=== PATIENT | female | born 1990 | race Caucasian/White ===

== ENCOUNTER 2017-08-30 10:05 | Day surgery (SDC) | payer OTHER ==
[~2017-08-30] VITALS: Ht 170.2 cm; Wt 65.8 kg
[~2017-08-30 10:05] MED LIST: PRENATAL-FOLIC1 EACH PO
[2017-08-30] MEDS ORDERED: CLEOCIN HCL300 MG PO (10:21)
--- NOTE | 2017-08-30 12:29 | NUR ---
08/30/17 1229 Brit Rob 1210 PT ARRIVED IN PACU SLEEPY WITH ORAL AIRWAY IN PLACE.
--- NOTE | 2017-08-30 13:05 | NUR ---
APPLESAUCE AND ICED WATER GIVEN. SPOUSE @ BS. CALL LIGHT W/IN REACH. HARD COPY PRESCRIPTION GIVEN TO PT'S SPOUSE.
[2017-08-30] MEDS ORDERED: HYDROCODONE-AC473 ML PO (13:10)
--- NOTE | 2017-08-30 14:00 | NUR ---
PT REQ DC HOME. PT UP TO BR W/RN STANDBY. PT AMBULATES WELL AND DENIES DIZZINESS. DC INSTRUCTIONS GIVEN IN PRESENCE OF SPOUSE AND BOTH HE AND PT VERBALIZE UNDERSTANDING.
--- NOTE | 2017-08-30 14:39 | NUR ---
LE 1410: PT DRESSES SELF IN PRESENCE OF SPOUSE AND TRANSFERS HERSELF TO AND THEN PERSONAL VEHICLE AND DOES THAT WELL.
--- NOTE | 2017-09-06 14:15 | PREHP ---
[facility] [address] [place], [place] [address] Signed ADMISSION DATE: 08/30/2017 She is scheduled for surgery August 30 at [facility]. CHIEF COMPLAINT: Chronic tonsillitis. HISTORY OF PRESENT ILLNESS: Louise is a 26-year-old lady, who has had multiple episodes of strep tonsillitis over the past several years at least three over the past year. She has had a peritonsillar abscess about three years ago, drained by in 2013. She has another severe episode of tonsillitis. Her primary, Tamiko Carbone was worried about peritonsillar abscess and has referred her here for evaluation. She started her on clindamycin yesterday after talking to me. The patient is feeling much better today. PAST HISTORY/REVIEW OF SYSTEMS: Otherwise healthy. ALLERGIES: No allergies to medications. CURRENT MEDICATIONS: Clindamycin and control pills. PAST SURGICAL HISTORY: None. SOCIAL HISTORY: She is , lives in [place]. 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 Occasional alcohol. No tobacco. FAMILY HISTORY: Unremarkable. PHYSICAL EXAMINATION: VITAL SIGNS: Stable. Afebrile. GENERAL: This is a well-developed, well-developed, well-nourished female, in no distress. HEAD AND NECK: Unremarkable except for the tonsils. Right tonsil is 2+, inflamed. A bit of tenseness to the peritonsillar area, possibly with some fluctuance. No significant airway obstruction. Left tonsil is 1+ acutely, edematous appearing. Head and neck exam otherwise unremarkable. CHEST: Clear. Electronically Signed By: BRADFORD WRIGHT MD 09/06/17 1415 PATIENT NAME: LOUISE MOURA PREOPERATIVE H&P DATE OF : 86 REPORT #: [id number] PHYSICIAN: BRADFORD WRIGHT MD PCP: TAMIKO CARBONE PA-C REPORT IS CONFIDENTIAL AND NOT TO BE RELEASED WITHOUT AUTHORIZATION [facility] [address] [place], [place] [address] Signed HEART: Regular rate and rhythm. ABDOMEN: Benign. EXTREMITIES: Benign. NEUROLOGIC: Grossly intact. REVIEW OF RECORDS: I have an office note from Tamiko Carbone, 08/25/2017, which I have reviewed. IMPRESSION: 1. Chronic tonsillitis. 2. History of peritonsillar abscess, right side and it appears, she has possibly a small right peritonsillar abscess today, possible tonsillar cellulitis. RECOMMENDATION: Continue the antibiotics. Encourage fluids. I have given her prescription for hydrocodone elixir 200 mL. We will schedule her for tonsillectomy at [facility], Wednesday, August 30, 2017 outpatient general anesthetic. The risks of surgery including bleeding, infection, continued sore throats have all been explained and accepted by Louise. She understands and desires to proceed. Bradford Wright MD GC/MODL /[id number] cc: MD Tamiko Tapia PA-C Copies: BRADFORD WRIGHT MD, CHLOE K PA-C ~ Electronically Signed By: BRADFORD WRIGHT MD 09/06/17 1415 PATIENT NAME: LOUISE MOURA PREOPERATIVE H&P DATE OF : 86 REPORT #: [id number] PHYSICIAN: BRADFORD WRIGHT MD PCP: TAMIKO CARBONE PA-C REPORT IS CONFIDENTIAL AND NOT TO BE RELEASED WITHOUT AUTHORIZATION
--- NOTE | 2017-09-06 14:15 | OR ---
[facility] [address] [place], [place] [address] Signed DATE OF OPERATION: 08/30/2017 SURGEON: Bradford Wright MD PREOPERATIVE DIAGNOSIS: Chronic tonsillitis with recurrent right peritonsillar abscess. POSTOPERATIVE DIAGNOSIS: Chronic tonsillitis with recurrent right peritonsillar abscess. PROCEDURE: Tonsillectomy. ANESTHESIA: General LMA; Edwin THOMAS. PREOPERATIVE HISTORY: Louise is a 26-year-old lady, who has had history of a right peritonsillar abscess 4 years ago, incised and drained by Dr. Reina in [place]. She has had a recurrent abscess with lots of tonsil infections in the interim, taken to the operating room at this time for above-mentioned procedure. PROCEDURE AND FINDINGS: After informed consent, the patient was taken to the operating room and placed in the supine position, where general orotracheal anesthesia was induced. The patient and procedure were verified. The patient was repositioned. McIvor mouth gag placed into suspension. Headlight exam of the pharynx showed hypertrophic tonsil on the left and a larger tonsil on the right with peritonsillar edema and induration. The left tonsil was grasped with a tenaculum. Tenaculum retracted medially and removed from its fossa with mucosal sparing incision with Coblation. Field was dry after the procedure. Same procedure on the right tonsil. In the posterior lateral superior aspect of the tonsil, there was an abscess cavity filled with seromucous fluid. This was all opened and drained completely during the tonsillectomy. Tonsils were sent to pathology for permanent sections. Hemostasis was verified on each tonsil. Minimal bleeding. The pharynx was suctioned clear of blood and secretions. The mouth gag was removed. The patient was awakened, extubated, and transported to the recovery room in good condition. COMPLICATIONS: No complications. Electronically Signed By: BRADFORD WRIGHT MD 09/06/17 1415 PATIENT NAME: LOUISE MOURA OPERATIVE REPORT DATE OF : 86 REPORT #: [id number] PHYSICIAN: BRADFORD WRIGHT MD PCP: MILTON ROBERSON PA-C REPORT IS CONFIDENTIAL AND NOT TO BE RELEASED WITHOUT AUTHORIZATION [address] [place], [place] [address] Signed BLOOD LOSS: Minimal. SPECIMEN: To pathology. DRAINS: No drains. Bradford Wright MD GC/MODL /[id number] Copies: ~ Electronically Signed By: BRADFORD WRIGHT MD 09/06/17 1415 PATIENT NAME: LOUISE MOURA OPERATIVE REPORT DATE OF : [birth year] REPORT #: [id number] PHYSICIAN: BRADFORD WRIGHT MD PCP: MILTON ROBERSON PA-C REPORT IS CONFIDENTIAL AND NOT TO BE RELEASED WITHOUT AUTHORIZATION
== END 2017-08-30 14:15 | disposition home or self-care (01) ==
LOC: DS 10:05
PROVIDERS: Otolaryngology
PROC: 0C5PXZZ Destruction of Tonsils, External Approach (ICD-10-PCS; principal; 2017-08-30 11:15)
DX: J35.01 Chronic tonsillitis (principal); Z79.2 Long term (current) use of antibiotics
CPT/HCPCS: J0330; J1100; J1885; J2250; J2405; J2704; J2765; J3010; J7120

== ENCOUNTER 2017-09-07 01:16 | Emergency (ER) | payer OTHER ==
[~2017-09-07] VITALS: Ht 170.2 cm; Wt 65.8 kg
[~2017-09-07 01:16] MED LIST changes: +CLEOCIN HCL300 MG PO; +HYDROCODONE-AC473 ML PO
== END 2017-09-07 01:53 | disposition short-term general hospital (02) ==
LOC: ED 01:16
DX: J95.830 Postprocedural hemorrhage of a respiratory system organ or structure following a respiratory system procedure (principal); Z88.0 Allergy status to penicillin; Z88.1 Allergy status to other antibiotic agents; Z79.2 Long term (current) use of antibiotics; Z90.89 Acquired absence of other organs
CPT/HCPCS: 80053; 85025; 85610; 85730; 96374; 99285; J2405

== ENCOUNTER 2018-10-09 11:51 | Emergency (ER) | payer OTHER ==
[~2018-10-09] VITALS: Ht 170.2 cm; Wt 65.8 kg
--- OUTSIDE RECORDS SUMMARY | ~2018-10-09 | XMS | Clinical Summary ---
Demographics + + + | Address | [address] | | | [place] [address] | + + + | Home Phone | | + + + | Preferred Language | Unknown | + + + | Marital Status | | + + + | Hinduism Affiliation | Unknown | + + + | Race | Unknown | + + + | Ethnic Group | Unknown | + + + Author + + + | Author | [facility] | | | and [place] | + + + | Organization | [facility] | | | and [place] | + + + | Address | Unknown | + + + | Phone | Unavailable | + + + Support + + + + + | Name | Relationship | Address | Phone | + + + + + | Diogo Heck | ECON | [address] | | | | | [place] | | | | | [address] | | + + + + + Care Team Providers + +------+ + | Care Roustabout Supervisor Name | Role | Phone | + +------+ + | Stan Wood DO | PP | | + +------+ + Allergies + + + + + + | Active Allergy | Reactions | Severity | Noted | Comments | | | | | Date | | + + + + + + | Amoxicillin | Hives | | 09/08/19 | | | | | | 18 | | + + + + + + | Penicillins | Hives | | 09/08/19 | | | | | | 18 | | + + + + + + Medications + + + +---------+------+------+-------+ | Medication | Sig | Dispensed | Refills | Star | End | Statu | | | | | | t | Date | s | | | | | | Date | | | + + + +---------+------+------+-------+ | | Take 10-15 mLs by | | 0 | | | Activ | | HYDROcodone-acetamin | mouth every 4 hours | | | | | e | | ophen 5-217 mg/10 mL | as needed for Pain. | | | | | | | liquid | | | | | | | + + + +---------+------+------+-------+ | ibuprofen | Take 800 mg by mouth | | 0 | | | Activ | | (ADVIL,MOTRIN) 800 | every 6 hours as | | | | | e | | MG tablet | needed for Pain. | | | | | | + + + +---------+------+------+-------+ | | Take 15 mLs by mouth | 300 mL | 0 | 03/1 | | Activ | | HYDROcodone-acetamin | every 4 hours as | | | 7/20 | | e | | ophen (HYCET) | needed for Pain. | | | 18 | | | | 7.5-325 mg/15 mL | | | | | | | | liquid | | | | | | | + + + +---------+------+------+-------+ Active Problems Not on file Social History + +-------+ +--------+------+ | Tobacco Use | Types | Packs/Day | Years | Date | | | | | Used | | + +-------+ +--------+------+ | Never Smoker | | | | | + +-------+ +--------+------+ + +---+---+---+ | Smokeless Tobacco: | | | | | Never Used | | | | + +---+---+---+ + + +---------+ + | Alcohol Use | Drinks/We | oz/Week | Comments | | | ek | | | + + +---------+ + | Yes | | | occasional | + + +---------+ + + + + | Sex Assigned at | Date Recorded | | | | + + + | Not on file | | + + + + + + + | Job Start Date | Occupation | Industry | + + + + | Not on file | Not on file | Not on file | + + + + + + + + | Travel History | Travel Start | Travel End | + + + + + + | No recent travel history available. | + + Last Filed Vital Signs + + + + | Vital Sign | Reading | Time Taken | + + + + | Blood Pressure | 101/67 | 09/10/2017939 PDT | + + + + | Pulse | 70 | 09/10/2017939 PDT | + + + + | Temperature | 36.9 C (98.4 F) | 09/10/2017639 PDT | + + + + | Respiratory Rate | 16 | 09/10/2017939 PDT | + + + + | Oxygen Saturation | 96% | 09/10/2017939 PDT | + + + + | Inhaled Oxygen | - | - | | Concentration | | | + + + + | Weight | 65.8 kg (145 lb) | 09/10/2017205 PDT | + + + + | Height | 170.2 cm (5' 7") | 09/08/20172322 PDT | + + + + | Body Mass Index | 22.71 | 09/08/2017 2323 PDT | + + + + Plan of Treatment + + + + + | Health Maintenance | Due Date | Last Done | Comments | + + + + + | Vaccine: | | | | | Dtap/Tdap/Td (1 - | 8 | | | | Tdap) | | | | + + + + + | Cervical Cancer | | | | | Screening (Pap) | 9 | | | + + + + + | Vaccine: Influenza | | | | | (Season Ended) | 9 | | | + + + + + Results Not on filefrom Last 3 Months Insurance + +--------+ +--------+ +---------+------+ | Payer | Benefi | Subscriber | Effect | Phone | Address | Type | | | t Plan | ID | tameka | | | | | | / | | Dates | | | | | | Group | | | | | | + +--------+ +--------+ +---------+------+ | [employer] | PHP | [id number] | 07/28/19 | [phone] | | PPO | | PLAN | PEBB | | 18-Pre | 5 | | | | | STATEW | | sent | | | | | | ANNALISE | | | | | | + +--------+ +--------+ +---------+------+ + +--------+ +--------+ + + | Guarantor Name | Accoun | Relation to | Date | Phone | Billing Address | | | t Type | Patient | of | | | | | | | | | | + +--------+ +--------+ + + | oLuise Heck | Person | Self [birth year] | [address] | | [place] | al/Fam | | 1991 | [phone] | [place] [address] | | | [place] | | | [address] (Home) | | + +--------+ +--------+ + + Advance Directives Patient has advance care planning documents, and code status on file. For more information, please contact:[facility] [place] [address] + + + + + | Code Status | Date | Date | Comments | | | Activated | Inactivated | | + + + + + | Full Code | 09/10/2017 | 09/10/2017 | | | | 6:06 | 13:45 | | + + + + +
--- OUTSIDE RECORDS SUMMARY | ~2018-10-09 | XMS | Clinical Summary ---
Demographics + + + | Address | [address] | | | [place] [address] | + + + | Home Phone | | + + + | Preferred Language | Unknown | + + + | Marital Status | | + + + | Druze Affiliation | Unknown | + + + | Race | Unknown | + + + | Ethnic Group | Unknown | + + + Author + + + | Author | [facility] | | | and [place] | + + + | Organization | [facility] | | | and [place] | [...] [place] | | | | | [address] | | + + + + + Care Team Providers + +------+ + | Care Curing Pickling Packer Name | Role | Phone | + [...] +--------+ +---------+------+ | [employer] | PHP | [phone] | 07/28/19 | [phone] | | PPO | | PLAN | [...] | + +--------+ +--------+ + + | Louise Heck | Person | Self [birth year] | [address] | | [place] | al/Fam | | 1991 | [phone] | [place] [address] | | | [place] | | | [address] (Home) | | + +--------+ +--------+ + + Advance Directives Patient has advance care planning documents, and code status on file. For more information, please contact:[facility] [place] [address] + + + + + | Code Status | Date | Date | Comments | | | Activated | Inactivated | | + + + + + | Full Code | 09/10/2017 | 09/10/2017 | | | | 6:06 | 13:45 | | + + + + +
[2018-10-09] MEDS ORDERED: [UNRECOGNIZED DRUG - OTHER] (12:03)
--- NOTE | 2018-10-10 16:54 | EKG ---
[facility] [address] [facility] [place], [place] [address] Signed Normal sinus rhythm Normal ECG No previous ECGs available Confirmed by JUDY MONACO DO ([id number]) on 10/10/2018 4:54:36 PM Electronically Signed By: JUDY MONACO DO 10/10/18 1654 PATIENT NAME: NASIM MOURA Electrocardiogram DATE OF : 86 PHYSICIAN: UJDY MONACO DO REPORT #: [id number] REPORT IS CONFIDENTIAL AND NOT TO BE RELEASED WITHOUT AUTHORIZATION
== END 2018-10-09 14:36 | disposition home or self-care (01) ==
LOC: ED 11:51
DX: M54.12 Radiculopathy, cervical region (principal); Z88.0 Allergy status to penicillin; Z79.899 Other long term (current) drug therapy
CPT/HCPCS: 80053; 81001; 83735; 84443; 84703; 85025; 93005; 93010; 96360; 99284-25; J7030

== ENCOUNTER 2021-11-03 09:59 | Inpatient (IN) | payer OTHER ==
[~2021-11-03] VITALS: Ht 167.6 cm; Wt 80.7 kg
[~2021-11-03 09:59] MED LIST changes: +[UNRECOGNIZED DRUG - OTHER]
--- NOTE | 2021-11-03 10:25 | NUR ---
Obtaine COVID swab. PT tolerated well.
--- NOTE | 2021-11-03 12:12 | PR ---
[facility] [address] [facility] [place], [place] [address] Signed Progress Notes IP Datetime Report Generated by CPN: 11/03/2021 12:12 PROGRESS NOTES: [id number] Impression: Normal Progression of Labor Plan: Continue Present Management; Anticipate Vaginal Delivery VITAL SIGNS: [id number] Vital Signs: Reviewed; Within Normal Limits EXAM: [id number] Dilatation: 4.0 Effacement: 75 Station: -2 Contractions: irregular MEMBRANES: [id number] Membranes Status: Ruptured Comments: Tolerating contractions well, will continue monitoring. May need Pitocin augmentation FETUS A: [id number] FHR Baseline: 135 Variability: Moderate 6-25bpm Accelerations: 15X15 FETUS B: [id number] Signing Physician: Apolonia Caraballo MD Copies: ~ *Electronically Signed* 11/03/21 1212 APOLONIA CARABALLO MD PATIENT NAME: NASIM MOURA PROGRESS NOTE DATE OF : 86 PHYSICIAN: APOLONIA CARABALLO MD RPT #: [id number] REPORT IS CONFIDENTIAL AND NOT TO BE RELEASED WITHOUT AUTHORIZATION
--- NOTE | 2021-11-03 14:10 | PR ---
[facility] [address] [facility] [place], [place] [address] Signed Progress Notes IP Datetime Report Generated by CPN: 11/03/2021 14:10 PROGRESS NOTES: [id number] Impression: Normal Progression of Labor Plan: Continue Present Management; Anticipate Vaginal Delivery VITAL SIGNS: [id number] Vital Signs: Reviewed; Within Normal Limits EXAM: [id number] Dilatation: 5.0 Effacement: 75 Station: -2 Contractions: irregular MEMBRANES: [id number] Membranes Status: Ruptured Comments: Patient getting more uncomfortable, feeling like contracitons closer together, would like Epidural. -> Anesthesia notified. Still no fluid seen since AROM, but no membranes palpable either; will continue monitoring. FETUS A: [id number] FHR Baseline: 135 Variability: Moderate 6-25bpm Accelerations: 15X15 FETUS B: [id number] Signing Physician: Estrada Caraballo MD Copies: ~ *Electronically Signed* 11/03/21 1410 ESTRADA CARABALLO MD PATIENT NAME: NASIM MOURA VIRGEN PROGRESS NOTE DATE OF : 86 PHYSICIAN: ESTRADA CARABALLO MD RPT #: [id number] REPORT IS CONFIDENTIAL AND NOT TO BE RELEASED WITHOUT AUTHORIZATION
--- NOTE | 2021-11-03 15:30 | PR ---
[facility] [address] [facility] [place], [place] [address] Signed Progress Notes IP Datetime Report Generated by CPN: 11/03/2021 15:30 PROGRESS NOTES: [id number] Impression: Normal Progression of Labor Other Impressions: Slow Progress Procedures: Intrauterine Pressure Catheter; Scalp Electrode Plan: Augmentation; Anticipate Vaginal Delivery VITAL SIGNS: [id number] Vital Signs: Reviewed; Within Normal Limits EXAM: [id number] Dilatation: 5.0 Effacement: 75 Station: -2 Contractions: irregular MEMBRANES: [id number] Membranes Status: Ruptured Comments: Minimal cervical change, now comfortable with Epidural. Will start Pitocin augmentation. FETUS A: [id number] FHR Baseline: 135 Variability: Moderate 6-25bpm Accelerations: 15X15 FETUS B: [id number] Signing Physician: Apolonia Caraballo MD Copies: ~ *Electronically Signed* 11/03/21 2906 APOLONIA CARABALLO MD PATIENT NAME: NASIM MOURA PROGRESS NOTE DATE OF : 86 PHYSICIAN: APOLONIA CARABALLO MD RPT #: [id number] REPORT IS CONFIDENTIAL AND NOT TO BE RELEASED WITHOUT AUTHORIZATION
--- NOTE | 2021-11-03 18:21 | PR ---
[facility] [address] [facility] [place], [place] [address] Signed Progress Notes IP Datetime Report Generated by CPN: 11/03/2021 18:20 PROGRESS NOTES: [id number] Impression: Normal Progression of Labor Other Impressions: Slow Progress Procedures: Intrauterine Pressure Catheter; Scalp Electrode Plan: Continue Present Management VITAL SIGNS: [id number] Vital Signs: Reviewed; Within Normal Limits EXAM: B7748029 Dilatation: 6.0 Effacement: 80 Station: -2 Contractions: irregular MEMBRANES: [id number] Membranes Status: Ruptured Comments: Comfortable with Epidural. Fetus still seems rather high in pelvis; will try different positions. FETUS A: [id number] FHR Baseline: 135 Variability: Moderate 6-25bpm Accelerations: 15X15 FETUS B: [id number] Signing Physician: Apolonia Caraballo MD Copies: ~ *Electronically Signed* 11/03/210 APOLONIA CARABALLO MD PATIENT NAME: NASIM MOURA PROGRESS NOTE DATE OF : 86 PHYSICIAN: APOLONIA CARABALLO MD RPT #: [id number] REPORT IS CONFIDENTIAL AND NOT TO BE RELEASED WITHOUT AUTHORIZATION
--- NOTE | 2021-11-03 19:45 | PR ---
[facility] [address] [facility] [place], [place] [address] Signed Progress Notes IP Datetime Report Generated by CPN: 11/03/2021 19:45 PROGRESS NOTES: [id number] Impression: Normal Progression of Labor Other Impressions: Slow Progress Procedures: Intrauterine Pressure Catheter; Scalp Electrode Plan: Continue Present Management; Anticipate Vaginal Delivery VITAL SIGNS: C9620971 Vital Signs: Reviewed; Within Normal Limits EXAM: [id number] Dilatation: 10.0 Effacement: 100 Station: 1 Contractions: irregular MEMBRANES: J3748057 Membranes Status: Ruptured Comments: Patient c/o feeling "Pop"and then baby turned from right side of her abdomen to left. Vaginal exam showed Complete / 100 % / +2, ENA Set up for delivery. FETUS A: [id number] FHR Baseline: 135 Variability: Moderate 6-25bpm Accelerations: 15X15 FETUS B: [id number] Signing Physician: Estrada Caraballo MD Copies: ~ *Electronically Signed* 11/03/211944 ESTRADA CARABALLO MD PATIENT NAME: NASIM MOURA VIRGEN PROGRESS NOTE DATE OF : 86 PHYSICIAN: ESTRADA CARABALLO MD RPT #: [id number] REPORT IS CONFIDENTIAL AND NOT TO BE RELEASED WITHOUT AUTHORIZATION
--- NOTE | 2021-11-04 13:08 | PR ---
[facility] [address] [facility] [place] [address] Signed PP Progress Notes Datetime Report Generated by CPN: 11/04/2021 13:08 SUBJECTIVE: [id number] Pain: Within Normal Limits Nausea/Vomiting: Denies Vital Signs: P7563698 Vital Signs: Reviewed; Within Normal Limits Notable Details: PP Hgb/Hct = 11.3/33.3 EXAM: Met Abdomen/Uterus: Normal Lochia: Normal Extremities: Normal IMPRESSION/PLAN/PROCEDURES: [id number] Impression: Normal Progression Plan: Discharge Procedures: None Progress Notes: Doing well, without complaint, wants to go homel Signing Physician: Apolonia Caraballo MD Copies: ~ *Electronically Signed* 11/04/21 1308 APOLONIA CARABALLO MD PATIENT NAME: NASIM MOURA PROGRESS NOTE DATE OF : 86 PHYSICIAN: APOLONIA CARABALLO MD RPT #: [id number] REPORT IS CONFIDENTIAL AND NOT TO BE RELEASED WITHOUT AUTHORIZATION
== END 2021-11-04 20:15 | disposition home or self-care (01) | DRG 807 ==
LOC: FBCO 09:59 → FBC 10:10 → FBCO 11-09 09:20
PROVIDERS: ADMIT General Practice; ATTEND General Practice
PROC: 10E0XZZ Delivery of Products of Conception, External Approach (ICD-10-PCS; principal; 2021-11-03)
PROC: 0KQM0ZZ Repair Perineum Muscle, Open Approach (ICD-10-PCS; 2021-11-03)
PROC: 10H07YZ Insertion of Other Device into Products of Conception, Via Natural or Artificial Opening (ICD-10-PCS; 2021-11-03)
DX: O42.02 Full-term premature rupture of membranes, onset of labor within 24 hours of rupture (principal); Z37.0 Single live birth; Z3A.39 39 weeks gestation of pregnancy; O70.1 Second degree perineal laceration during delivery; Z20.822 Contact with and (suspected) exposure to COVID-19; Z67.20 Type B blood, Rh positive
CPT/HCPCS: 36415; 85027; 86850; 86900; 86901; 87502; A9270; C9803; J2405; J2590; J2795; J7121; U0003